=== PATIENT | female | born 1950 | race Hispanic/Latino ===

== ENCOUNTER → 2017-11-29 | Outpatient (CLI) | payer MEDICARE | END | disposition home or self-care (01) | LOC: RAH 09:10 | PROVIDERS: ATTEND Internal Medicine Nephrology | DX: Z12.31 Encounter for screening mammogram for malignant neoplasm of breast (principal) | CPT/HCPCS: 77067 ==

== ENCOUNTER → 2018-08-07 | Outpatient (CLI) | payer OTHER | END | disposition home or self-care (01) | LOC: RAH 10:48 | PROVIDERS: ATTEND Internal Medicine Nephrology | DX: Z13.6 Encounter for screening for cardiovascular disorders (principal) | CPT/HCPCS: 75571 ==

== ENCOUNTER → 2022-02-03 | Outpatient (CLI) | payer MEDICARE, BC ==
[~2022-02-03] MED LIST: IOHEXOL 350 MG/ML 100ML INFUS..BTL IV ONE
== END | disposition home or self-care (01) ==
LOC: RAH 10:15
PROVIDERS: ATTEND Urology Pediatric Urology
DX: K80.20 Calculus of gallbladder without cholecystitis without obstruction (principal); N20.0 Calculus of kidney; K59.00 Constipation, unspecified
CPT/HCPCS: 74178; Q9967

== ENCOUNTER → 2023-08-15 | Outpatient (CLI) | payer MEDICARE, BC | END | disposition home or self-care (01) | LOC: SHCH 08:43 | PROVIDERS: ATTEND Internal Medicine Cardiovascular Disease | DX: I87.2 Venous insufficiency (chronic) (peripheral) (principal); I70.202 Unspecified atherosclerosis of native arteries of extremities, left leg; I87.1 Compression of vein | CPT/HCPCS: 93925; 93970 ==

== ENCOUNTER 2024-03-07 15:20 | Emergency (ER) | payer MEDICARE ==
[~2024-03-07] VITALS: Ht 157.5 cm; Wt 60.8 kg
--- NOTE | 2024-03-07 15:32 | ERN ---
General Chief Complaint: Wrist Pain/Injury Stated Complaint: MECHANICAL FALL,RIGHT WRIST INJURY Time Seen by MD: 15:22 History of Present Illness Initial Comments Otherwise healthy 73-year-old female who presents for right wrist pain. She had a mechanical fall just prior to arrival. She fell with an outstretched hand, FOOSH. She was pain of the right wrist. No pain to the shoulder, no elbow inju ry, neurovascularly intact. She denies hitting her head, denies loss of consciousness, denies headache or neck injury. No other complaints. Denies blood thinners. Denies surgical or medical history. Allergies: Coded Allergies: No Known Drug Allergies (Unverified Allergy, Unknown, 03/07/24) ROS Dictation CONSTITUTIONAL: No chills, no fever, no weakness, no diaphoresis, no malaise. HEAD/FACE: No signs of trauma. EENT: No eye pain, no blurred vision, no tearing, no double vision, no ear pain, no ear discharge, no nose pain, no nasal congestion, no throat pain, no throat swelling, no mouth pain. RESPIRATORY: No cough, no orthopnea, no SOB, no stridor, no wheezing. CARDIOVASCULAR: No chest pain, no edema, no palpitations, no syncope. GASTROINTESTINAL/ABDOMINAL: No abdominal pain, no constipation, no diarrhea, no nausea, no vomiting. GENITOURINARY: No abnormal discharge, no dysuria, no frequent urination, no hematuria. No complaints of pain in the genitals. MUSCULOSKELETAL: Right wrist pain INTEGUMENTARY: No change in color, no change in hair/nails, no dryness, no lesion, no lumps, no rash. NEUROLOGICAL/PSYCH: No anxiety, not depressed, no emotional problem, no headache, no numbness, no pre-existing deficit, no history of seizures, no tremors, no weakness. HEMATOLOGIC/LYMPHATIC: Not anemic, no history of blood clots, no apparent bleeding, no bruising, glands not swollen. All Systems Negative, Except as Noted. Physical Exam Physical Exam Dictation VITAL SIGNS: Reviewed. GENERAL APPEARANCE: Alert, oriented x3, no acute distress. HEAD AND FACE: Non-traumatic. EYES: PERRL, pink conjunctivas, eyelid no trauma, anterior chamber clear. EARS: Pinnas intact and no signs of trauma or erythema. Ear canals clear and no discharge. TMs no erythema. NOSE: No discharge, no bleeding. OROPHARYNX: Mouth normal, teeth no caries, tongue pink. Pharynx clear, no erythema. Tonsils no exudates, no abscesses noted. Mucous membrane moist. NECK: Supple, non-tender, no thyromegaly, no masses, no JVD, no bruits. BREAST: Deferred. CHEST: No tenderness, no crepitus, no paradoxical movement, no retractions. LUNGS: Clear, well-ventilated, symmetric, no rales, no wheezing, no rhonchi, no stridor, good breath sounds bilaterally. HEART: Regular rate, regular rhythm, no murmur, no gallops. VASCULAR: No peripheral edema. ABDOMEN: Soft, positive bowel sounds, nondistended, no guarding, nontender, no rebound, no masses no hepatomegaly, no splenomegaly, no Cheney's sign, no hernias. RECTAL: Deferred. GENITAL: Deferred. NEUROLOGICAL: Normal speech, gross motor function intact, gross sensory function intact. MUSCULOSKELETAL: Neck nontender, full range of motion, back nontender, full range of motion. Right wrist deformity. Neurovascularly intact distally. EXTREMITIES: Nontender, full range of motion. SKIN: Color pink, dry, no turgor, no rash, no lacerations, no abrasions, no contusions. LYMPHATICS: Deferred. MDM CC: Right wrist pain status post fall Historian: Patient Comorbidities: Advanced age, osteopenia Limitations by social determinants of health: None Differential diagnosis: Soft tissue injury, fracture, other. On clinical exam there is no neurovascular compromise. She has good radial pulse, cap refill less than 2 seconds, able to flex and extend the wrist, eight and a oppose the pinky in the thumb, able to cross the fingers. The x-ray per my independent interpretation shows a distal radius fracture with some displacement. Patient received IM Toradol and p.o. [place] here in the ER for pain control. The wrist was splinted with a sugar-tong splint by surface lay out technician. Neurovascularly intact both before and after. We will discharge with a prescription for meloxicam and [place] tabs to use for pain in his comfort. We will recommend RICE guidelines. Given a referral for Orthopedics. ED Course Orders Procedure Category Date Status Time Wrist Comp 3+Vws Rt RAD 03/07/24 Resulted 15:30 Ketorolac PHA 03/07/24 Complete Tromethamine 15mg/Ml 15:30 Hydrocodone/Apap PHA 03/07/24 Complete 5/325 ([place] 5/325mg) 15:30 Current Medications Medications (Trade) Dose Ordered Sig/Yolanda Route PRN Reason Start Time Stop Time Status Last Admin Dose Admin Acetaminophen/ Hydrocodone Bitart (NORco 5/325MG) 1 tab ONCE ONCE PO 03/07/24 15:30 03/07/24 15:32 DC Ketorolac Tromethamine (toRADol) 15 mg ONCE ONCE IM 03/07/24 15:30 03/07/24 15:32 DC Vital Signs Date Time Temp Pulse Resp B/P (MAP) Pulse Ox O2 Delivery O2 Flow Rate FiO2 03/07/24 15:32 97.9 67 16 140/87 Room Air DX & DISP Disposition: Discharge Departure Impression: Primary Impression: Right wrist fracture Condition: Stable Scripts Hydrocodone/Acetaminophen (Hydrocodon-Acetaminophen 5-325) 5 Mg-325 Mg Tablet 1-2 TAB PO Q6H PRN for pain for 5 Days, #20 TAB 0 Refills Prov: JESSICA BENJAMIN DO 03/07/24 Meloxicam (Meloxicam) 15 Mg Tablet 15 MG PO DAILY PRN for PAIN for 10 Days, #10 TAB Prov: JESSICA BENJAMIN DO 03/07/24 Additional Instructions: You have a right wrist fracture. You will need to follow up with an orthopedist. I have prescribed meloxicam, which is an anti-inflammatory pain medication. You can take this once per day as needed for pain. I have prescribed [place] tabs to use as needed for significant pain. You can take this up to 4 times a day as needed. Please follow up with Elyssa Scott tomorrow morning from 8:00 a.m. to 11:00 a.m.. Address: [address] [place] [address], [address] [place] [address], [id number] Keep the splint on that you have been provided until you visit an orthopedist. Please return to the emergency department if you have any concerns. Referrals: KONSTANTIN PEDROZA MD (PCP) ANTHONY BRIONES MD, RYAN E DO Mar 07, 2024 15:32
--- NOTE | 2024-03-07 16:26 | HMCIMG ---
WRIST COMP 3+VWS RT REASON: right wrist fx TECHNIQUE: 3 views were performed. FINDINGS: There is a comminuted mildly impacted fracture of the distal radius. There is articular involvement. There is an ulnar styloid evulsion. Carpal bones appear intact. Metacarpals appear intact. IMPRESSION: 1. Comminuted mildly impacted fracture of the distal radius, there is also an ulnar styloid evulsion.
[2024-03-07] MEDS ORDERED: HYDR-4060 PO (16:47)
[2024-03-07] MEDS ORDERED: MELO-108 PO (16:47)
[2024-03-07] MEDS: HYDROcodone/APAP 5/325 1 TAB TABLET PO ONE (17:48)
[2024-03-07] MEDS: ketOROlac 15MG/ML VIAL (15MG/ML) IM ONE (17:48)
[2024-03-07 17:57] VITALS: BP 140/85; PULSE 65; RESP 16; TEMP 98.1; O2SAT 99
== END 2024-03-07 18:06 | disposition home or self-care (01) ==
LOC: EDH 15:20
DX: S52.511A Displaced fracture of right radial styloid process, initial encounter for closed fracture (principal); W18.39XA Other fall on same level, initial encounter; Y93.89 Activity, other specified; Y92.89 Other specified places as the place of occurrence of the external cause; Y99.8 Other external cause status
CPT/HCPCS: 99283; 73110; 29125; 96372; J1885